=== PATIENT | female | born 1935 | race Caucasian/White ===

== ENCOUNTER 2017-01-29 13:58 | Emergency (ER) | payer MEDICARE ==
[~2017-01-29] VITALS: Ht 157.5 cm; Wt 54.5 kg
[~2017-01-29 13:58] MED LIST: ARICEPT10 MG PO; ASPIRIN 32325 MG/TAB PO; CALCIUM + D 6001 TAB PO; COUMADIN2 MG PO; DULCOLAX S10 MG/SUPP RC; EXELON PAT4.6 MG/24 TD; EXELON9.5 MG/24 TD; FERROUS SU325 MG/TAB PO; FOLIC ACID 40400 MCG PO; LEXAPRO 10MG10 MG PO; LEXAPRO 5MG5 MG PO; LORTAB 5/500 501 TAB PO; MILK OF MA400 MG/5 M PO; MULTI VITAMINS1 TAB PO; NORCO 325 MG-101 TAB PO; NORCO 325 MG-51 TAB PO; NORCO 325 MG-7.1 TAB PO; SENOKOT S 50 MG1 TAB PO; TYLENOL 325MG325 MG PO; TYLENOL 500MG500 MG PO; ULTRAM50 MG PO; VITAMIN C BUFF500 MG PO; VITAMIN C500 MG PO; VITAMIN D1000 IU PO; VOLTAREN 50MG T50 MG PO; ZOFRAN 4MG T4 MG/TAB PO
[2017-01-29 14:06] VITALS: BP 126/69; PULSE 100; TEMP 98.6
[2017-01-29] MEDS ORDERED: NORCO 325 MG-51 TAB PO (15:58)
== END 2017-01-29 16:17 | disposition home or self-care (01) ==
LOC: COL.ER 13:58
DX: M54.5 Low back pain (principal); F03.90 Unspecified dementia, unspecified severity, without behavioral disturbance, psychotic disturbance, mood disturbance, and anxiety; Z87.891 Personal history of nicotine dependence; V49.9XXA Car occupant (driver) (passenger) injured in unspecified traffic accident, initial encounter; Y93.I9 Activity, other involving external motion